=== PATIENT | female | born 1980 | race Caucasian/White ===

== ENCOUNTER 2023-04-18 20:40 | Emergency (ER) | payer MEDICARE ==
[~2023-04-18] VITALS: Ht 177.8 cm; Wt 59.1 kg
[2023-04-18] MEDS ORDERED: LORazepam 2 mg/ml vial IM ONE (20:50)
[2023-04-18] MEDS ORDERED: diazepam inj 5 MG/ML inj. IM ONE (20:55)
[2023-04-18] MEDS ORDERED: ondansetron 4mg rapidly disintigrating tab PO ONE (22:30)
[2023-04-18] MEDS ORDERED: metoclopramide 10mg tablet PO ONE (23:10)
[2023-04-19] MEDS ORDERED: haloperidol lactate 5mg/ml inj IM ONE (00:45)
[2023-04-19] MEDS ORDERED: MIDAZolam 1mg/ml 10ml vial IM ONE (00:45)
[2023-04-19] MEDS ORDERED: MIDAZolam 5mg/ml 2ml vial IM ONE (00:50)
[2023-04-19] MEDS ORDERED: MIDAZolam 5mg/ml 2ml vial IV ONE (01:55)
[2023-04-19] MEDS ORDERED: diphenhydrAMINE 50 mg/ml inj IV ONE (01:55)
[2023-04-19 02:44] LABS: BASOPHILS # (AUTO) 0.1 X10'3 (0-0.2); BASOPHILS % (AUTO) 0.9 % (0-1); EOSINOPHILS % (AUTO) 0.1 % (0-6); HEMATOCRIT 35.4 % (35.0-45.0); HEMOGLOBIN 11.6 g/dl (12.0-16.0); LYMPHOCYTES % (AUTO) 20.7 % (21-51); MEAN CORPUSCULAR HGB CONC 32.8 g/dL (33.0-36.5); MEAN CORPUSCULAR VOLUME 88.3 FL (78-98); MEAN PLATELET VOLUME 8.1 FL (7.4-10.4); MONOCYTES # (AUTO) 0.5 X10'3 (0-0.9); MONOCYTES % (AUTO) 5.5 % (2-12); NEUTROPHILS % (AUTO) 72.8 % (42-75); PLATELET COUNT 231 X10'3 (140-440); RED BLOOD COUNT 4.01 X10'6 (4.20-5.60); RED CELL DISTRIBUTION WIDTH 16.5 % (11.5-14.5); WHITE BLOOD COUNT 9.6 X10'3 (4.5-11.0)
[2023-04-19 03:05] LABS: ALANINE AMINOTRANSFERASE 42 U/L (12-78); ALBUMIN/GLOBULIN RATIO 0.6 (1.1-1.5); ALKALINE PHOSPHATASE 149 IU/L (46-116); ANION GAP 12 (8-16); ASPARTATE AMINO TRANSFERASE 192 U/L (10-37); BILIRUBIN,TOTAL 2.6 MG/DL (0.1-1.0); BLOOD UREA NITROGEN 2 MG/DL (7-18); BUN/CREATININE RATIO 1.9 (10.0-20.0); CALCIUM 8.6 MG/DL (8.5-10.1); CHLORIDE 98 MMOL/L (99-107); CREATINE KINASE 133 U/L (26-192); CREATININE 1.05 MG/DL (0.40-0.90); ETHANOL < 10 MG/DL (<10); GLUCOSE 150 MG/DL (70-104); SODIUM 136 MMOL/L (135-145); THYROID STIMULATING HORMONE 6.78 ulU/ml (0.34-4.50); TOTAL CARBON DIOXIDE 25.7 MMOL/L (24-32); TOTAL PROTEIN 7.9 G/DL (6.4-8.2); eCRCL 64 ML/MIN; eGFR 57 ML/MIN
[2023-04-19] MEDS ORDERED: ziprasidone 20mg capsule PO ONE (03:30)
[2023-04-19 04:32] LABS: URINE HCG NEGATIVE (NEG)
[2023-04-19 04:46] LABS: BILIRUBIN,URINE MODERATE (Neg); CLARITY,URINE SLIGHTLY CLOUDY (Clear); COLOR,URINE AMBER (Yellow); GLUCOSE, URINE NEGATIVE (Neg); KETONES,URINE TRACE mg/dl (Neg); LEUKOCYTE ESTERASE ,URINE NEGATIVE (Neg); NITRITES, URINE POSITIVE (Neg); OCCULT BLOOD,URINE NEGATIVE (Neg); PH,URINE 6.5 (4.8-8.0); PROTEIN,URINE TRACE mg/dl (Neg)
[2023-04-19 04:49] LABS: URINE AMPHETAMINE SCREEN NEGATIVE (Neg); URINE BARBITUATE SCREEN NEGATIVE (Neg); URINE BENZODIAZEPINES SCREEN POSITIVE (Neg); URINE CANNABINOID SCREEN NEGATIVE (Neg); URINE COCAINE SCREEN NEGATIVE (Neg); URINE METHADONE SCREEN NEGATIVE (Neg); URINE OPIATE SCREEN NEGATIVE (Neg); URINE PHENCYCLIDINE SCREEN NEGATIVE (Neg)
[2023-04-19 04:50] LABS: UA COLLECTION TYPE CLN CATCH MIDSTREAM
[2023-04-19 04:59] LABS: BACTERIA,URINE 4+ /HPF (Neg); RBC,URINE 0-2 /HPF (0-2); WBC,URINE 0-4 /HPF (0-4)
[2023-04-19 05:00] LABS: MUCUS STRANDS FEW /LPF (Neg); SQUAMOUS EPITHELIAL CELL,UR MANY /LPF (FEW)
[2023-04-19] MEDS ORDERED: clonazePAM 1mg tablet PO ONE (05:25)
[2023-04-19] MEDS ORDERED: normal saline 1000ml 1,000 ML IV ONE (05:30)
[2023-04-19] MEDS ORDERED: TIAG4TAB34 PO (07:22)
[2023-04-19] MEDS ORDERED: CLON-527 PO (07:22)
[2023-04-19] MEDS ORDERED: ATEN-169 PO (07:22)
[2023-04-19] MEDS ORDERED: DULO-31 PO (07:27)
[2023-04-19] MEDS ORDERED: HYDR-3686 PO (07:29)
[2023-04-19] MEDS ORDERED: clonazePAM 1mg tablet PO PRN (08:50)
[2023-04-19 08:51] LABS: ACETAMINOPHEN < 2.0 UG/ML (10-30)
[2023-04-19] MEDS ORDERED: atenolol 25mg tablet PO SCH (09:36)
[2023-04-19] MEDS ORDERED: duloxetine 30mg CAPSULE.DR PO SCH (09:36)
[2023-04-19 10:58] VITALS: BP 109/69; PULSE 83; RESP 18; TEMP 97.8; O2SAT 98
[2023-04-19] MEDS ORDERED: hydrOXYzine 25 MG tablet PO SCH (13:00)
[2023-04-19] MEDS ORDERED: TIAGABINE 4 MG PO SCH (20:00)
== END 2023-04-19 10:51 | disposition home or self-care (01) ==
LOC: ER 20:41
DX: F41.0 Panic disorder [episodic paroxysmal anxiety] (principal); Z20.822 Contact with and (suspected) exposure to COVID-19; Z73.6 Limitation of activities due to disability; Z88.0 Allergy status to penicillin; Z88.2 Allergy status to sulfonamides; Z88.1 Allergy status to other antibiotic agents; Z79.899 Other long term (current) drug therapy
CPT/HCPCS: 36415; 71045; 76700; 80053; 80305; 80320; 80329; 81001; 81025; 82550; 84439; 84443; 84484; 85025; 87811; 93005; 96361; 96372; 96374; 96375; 99285; J1200; J1630; J2250; J3360; J7030

== ENCOUNTER 2023-11-18 12:26 | Day surgery (SDC) | payer MEDICARE ==
[~2023-11-18] VITALS: Ht 177.8 cm; Wt 73.0 kg
[~2023-11-18 12:26] MED LIST: ATEN-169 PO; CHOL10006 PO; CLON-527 PO; DULO-31 PO; FOLI1TAB27 PO; HYDR-3686 PO; LIDO5CRE18 TOP; MECO10005 PO; METH1CAP; MULT-1173; PRED5DRO23 OT; TIAG4TAB34 PO
[2023-11-18 13:00] VITALS: BP 110/66; PULSE 106; RESP 14
[2023-11-18] MEDS ORDERED: propofol inj 20 ML IV ONE (13:21)
[2023-11-18] MEDS ORDERED: fentaNYL/PF 50MCG/1 ML 2ML syringe ONE (13:21)
[2023-11-18] MEDS ORDERED: midazolam 1 mg/ML 2ml injection ONE (13:21)
[2023-11-18] MEDS ORDERED: flumazenil 0.1 mg/ml inj. 10mL vial IV ONE (13:21)
[2023-11-18] MEDS ORDERED: LIDOcaine 2% (20mg/ml) 5ml vial ONE (13:22)
[2023-11-18] MEDS ORDERED: MIDAZolam 1 MG/ML 5ML VIAL ONE (13:27)
[2023-11-18 13:50] VITALS: BP 105/57; PULSE 105; RESP 16; O2SAT 95
[2023-11-18 14:00] VITALS: BP 106/63; PULSE 101; RESP 18; O2SAT 95
[2023-11-18 14:10] VITALS: BP 115/70; PULSE 101; RESP 16; O2SAT 97
== END 2023-11-18 14:19 | disposition home or self-care (01) ==
LOC: GI LAB 12:26
PROVIDERS: ATTEND Internal Medicine Gastroenterology
DX: K52.9 Noninfective gastroenteritis and colitis, unspecified (principal); K62.5 Hemorrhage of anus and rectum; E66.9 Obesity, unspecified; Z68.23 Body mass index [BMI] 23.0-23.9, adult; Z88.0 Allergy status to penicillin; Z88.2 Allergy status to sulfonamides
CPT/HCPCS: 45380; A4620; J2001; J2250; J2704; J3010; J3490; J7030; Z7512; 88305; 99152